=== PATIENT | female | born 1945 | race Caucasian/White ===

== ENCOUNTER → 2017-11-20 | Outpatient (CLI) | payer MEDICARE | END | disposition home or self-care (01) | LOC: KCIC CT 13:17 | DX: J34.2 Deviated nasal septum (principal); J34.89 Other specified disorders of nose and nasal sinuses; I10 Essential (primary) hypertension; E03.9 Hypothyroidism, unspecified; Z87.891 Personal history of nicotine dependence | CPT/HCPCS: 70486 ==

== ENCOUNTER → 2018-03-31 | Outpatient (CLI) | payer MEDICARE ==
[2015-10-14 18:32] VITALS: BP 160/80
[~2018-03-31] MED LIST: FLUO10CA13 PO; GABA-585 PO; LEVO175T2 PO; [UNRECOGNIZED DRUG - OTHER]; metoprolol
--- NOTE | 2018-03-31 15:52 | KCIC ---
CT sinus without contrast History: Chronic pansinusitis. Comparison: Same examination November 20, 2017. Technique: CT of the sinuses was performed without intravenous contrast. Axial, sagittal, and coronal reconstructions were obtained. Exposure: One or more of the following individualized dose reduction techniques were utilized for this examination: 1. Automated exposure control 2. Adjustment of the mA and/or kV according to patient size 3. Use of iterative reconstruction technique Findings: There is interval improved aeration of the bilateral frontal sinuses. Mild-moderate left and mild right frontal sinus opacification is seen. There is evidence of interval bilateral ethmoidectomies with improved aeration of the residual ethmoid air cells. Mild mucosal disease is seen in the residual ethmoid air cells. There has been interval bilateral maxillary antrectomies. Mild bilateral maxillary sinus mucosal thickening is seen. Bilateral orbits and orbital contents have unremarkable appearance. There is mild opacification of right mastoid air cells. There is severe opacification of left mastoid air cells. IMPRESSION: 1. Interval bilateral maxillary antrectomies and bilateral ethmoidectomies. 2. Interval improvement in pansinus disease, now considered mild-moderate. 3. Left greater than right mastoid air cell opacification. Electronically signed by: Devon Gomez MD (03/31/2018 3:49 PM) [place] [id number]
== END | disposition home or self-care (01) ==
LOC: KCIC CT 14:40
PROVIDERS: ATTEND Otolaryngology
DX: J32.4 Chronic pansinusitis (principal); I10 Essential (primary) hypertension; Z79.01 Long term (current) use of anticoagulants; Z87.891 Personal history of nicotine dependence
CPT/HCPCS: 70486